=== PATIENT | male | born 1995 | race American Indian/Alaskan Native ===

== ENCOUNTER 2019-08-02 10:18 | Emergency (ER) | payer SELFPAY ==
[2019-08-02 10:31] VITALS: BP 135/89
--- NOTE | 2019-08-02 11:58 | Emergency Department Report ---
Chief Complaint: Upper Respiratory Infection Stated Complaint: COLD SX Time Seen by Provider: 08/02/19 11:53 - HPI History of Present Illness: 24-year-old male comes in for cough since Wednesday, runny nose, sneezing and nasal congestion. Patient reports dizziness 2 days of work and needs a work excuse. Patient personally been taking NyQuil and DayQuil. Last dose was last night. Patient denies any past medical history currently takes no medications on a daily basis and has no known drug allergies. - Exam Vital Signs: Vital Signs 08/02/19 10:29 Temperature 98.5 F Pulse Rate 89 Respiratory 16 Rate Blood Pressure 135/89 [Left] O2 Sat by Pulse 100 Oximetry Physical Exam: GENERAL APPEARANCE: Well developed, well nourished, in no acute distress. SKIN: Inspection of the skin reveals no rashes, ulcerations or petechiae. HEENT: The sclerae were anicteric and conjunctivae were pink and moist. Extraocular movements were intact and pupils were equal, round, and reactive to light with normal accommodation. External inspection of the ears and nose showed no scars, lesions, or masses. Lips, teeth, and gums showed normal mucosa. The oral mucosa, hard and soft palate, tongue and posterior pharynx were normal. NECK: Supple and symmetric. CHEST: Normal AP diameter and normal contour without any kyphoscoliosis. LUNGS: Auscultation of the lungs revealed normal breath sounds without any other adventitious sounds or rubs. CARDIOVASCULAR: There was a regular rate and rhythm without any murmurs, gallops, rubs. MUSCULOSKELETAL: Gait was normal. EXTREMITIES: No cyanosis, clubbing or edema. NEUROLOGIC: Alert and oriented x 3. Normal affect. Gait was normal. MSE screening note: Focused history and physical exam performed. Due to findings the following was ordered: Patient has allergic rhinitis. Patient can get [id number] Zyrtec D cough drops and to follow up with her primary care provider. ED Disposition for MSE Clinical Impression: Allergic rhinitis Disposition: Z- MED SCREENING EXAM-LEFT Is pt being admited?: No Does the pt Need Aspirin: No Condition: Stable Additional Instructions: Patient can take [id number] Zyrtec D and cough drops. Follow-up with the primary care provider if his symptoms persist or gets worse. Forms: Work/School Release Form(ED)
== END 2019-08-02 12:32 | disposition left against medical advice (07) ==
LOC: ED 10:18
DX: J30.9 Allergic rhinitis, unspecified (principal)
CPT/HCPCS: 99282

== ENCOUNTER 2019-12-05 08:53 | Emergency (ER) | payer SELFPAY ==
[2019-12-05 09:15] VITALS: BP 125/74
[2019-12-05] MEDS ORDERED: ALBUTEROL 2.5 MG/3 ML NEBU IH ONE (10:59)
[2019-12-05] MEDS ORDERED: predniSONE 20 MG TAB PO ONE (10:59)
[2019-12-05] MEDS ORDERED: IBUPROFEN 800 MG TAB PO ONE (10:59)
--- NOTE | 2019-12-05 11:00 | Emergency Department Report ---
Minor Respiratory - HPI Chief Complaint: Upper Respiratory Infection Stated Complaint: WEAKNESS Time Seen by Provider: 12/05/19 10:58 Duration: 3 Days Pain Location: Chest Severity: mild Minor Respiratory: Yes Rhinorrhea, Yes Able to Tolerate Fluids, Yes Cough, No Sore Throat, No Ear Pain, No Sick Contacts, No Hemoptysis, No Chest Pain, No Shortness of Breath, No Fever Other History: 24 YO AA MALE COMES TO ER WITH COUGH AND CONGESTION. NO FEVER OR CHILLS. NO MYALGIA. NOW FOR 3 DAYS. DID NOT TAKE OTC AND DID NOT SEE PCP. ED Review of Systems ROS: Stated complaint: WEAKNESS Other details as noted in HPI Comment: All other systems reviewed and negative ED Past Medical Hx - Past Medical History Previous Medical History?: No - Surgical History Past Surgical History?: No - Family History Family history: no significant - Social History Smoking Status: Current Every Day Smoker - Medications Home Medications: Home Medications Medication Instructions Recorded Confirmed Last Taken Type Albuterol INH(or & Nicu Only) 2 puff IH QID PRN #1 inhalation 12/05/19 Unknown Rx [ProAir HFA Inhaler] Azithromycin [Zithromax Z-KARMEN] 250 mg PO DAILY #6 tablet 12/05/19 Unknown Rx Cetirizine HCl [ZyrTEC] 10 mg PO DAILY #30 capsule 12/05/19 Unknown Rx Fluticasone [Flonase] 1 spray NS QDAY #1 bottle 12/05/19 Unknown Rx predniSONE [Deltasone] 20 mg PO DAILY #5 tablet 12/05/19 Unknown Rx Minor Respiratory Exam - Exam General: Vital signs noted. No distress. Alert and acting appropriately. HEENT: Yes Moist Mucous Membranes, No Pharyngeal Erythema, No Pharyngeal Exudates, No Rhinorrhea, No Conjuctival Injection, No Frontal Tenderness, No Maxillary Tenderness Ear: Neither TM Bulge, Neither TM Erythema, Neither EAC Pain, Neither EAC Discharge Neck: Yes Supple, No Adenopathy Lungs: Yes Good Air Exchange, Yes Wheezes, No Ronchi, No Stridor, No Cough, No Labored Respirations, No Retractions, No Use of Accessory Muscles, No Other Abnormal Lung Sounds Heart: Yes Regular, No Murmur Abdomen: Yes Normal Bowel Sounds, No Tenderness, No Peritoneal Signs Skin: No Rash, No Edema Neurologic: Alert and oriented, no deficits. Musculoskeletal: Unremarkable. ED Course Vital Signs 12/05/19 09:13 Temperature 98.3 F Pulse Rate 87 Respiratory 18 Rate Blood Pressure 125/74 O2 Sat by Pulse 100 Oximetry ED Medical Decision Making - Radiology Data Radiology results: report reviewed, image reviewed - Medical Decision Making XRAY NO PNA MEDICATED IN ER VSS AMBULATORY NON ILL NON TOXIC TAKING PO COUNSELED ON SMOKING DC HOME WITH DC POC AND PCP FOLLOW UP REFERRAL GIVEN Vital Signs 12/05/19 12/05/19 09:13 11:24 Temperature 98.3 F Pulse Rate 87 Pulse Rate [ 82 Anterior Bilateral Throughout] Respiratory 18 Rate Respiratory 17 Rate [Anterior Bilateral Throughout] Blood Pressure 125/74 O2 Sat by Pulse 100 Oximetry - Differential Diagnosis URTI Critical care attestation.: If time is entered above; I have spent that time in minutes in the direct care of this critically ill patient, excluding procedure time. ED Disposition Clinical Impression: Acute bronchitis, URTI (acute upper respiratory infection) Disposition: DC-01 TO HOME OR SELFCARE Is pt being admited?: No Does the pt Need Aspirin: No Condition: Stable Instructions: Acute Bronchitis (ED) Additional Instructions: STAY WELL HYDRATED MEDS ORDERED TODAY FOLLOW UP WITH PCP IN 48 HOURS FOR REEVALUATION REFERRAL BELOW DIET AND ACTIVITY TOLERATED AVOID SMOKING Prescriptions: predniSONE [Deltasone] 20 mg PO DAILY #5 tablet Fluticasone [Flonase] 1 spray NS QDAY #1 bottle Albuterol INH(or & Nicu Only) [ProAir HFA Inhaler] 2 puff IH QID PRN #1 inhalation PRN Reason: Shortness Of Breath Azithromycin [Zithromax Z-KARMEN] 250 mg PO DAILY #6 tablet Cetirizine HCl [ZyrTEC] 10 mg PO DAILY #30 capsule Referrals: PRIMARY MD JOSH [Primary Care Provider] - 3-5 Days LIZ WILL MD [Staff Physician] - 3-5 Days Time of Disposition: 11:32
--- NOTE | 2019-12-05 11:20 | XRay Report ---
CHEST 2 VIEWS INDICATION: cough. COMPARISON: 08/15/2019 FINDINGS: Support devices: None. Heart: Within normal limits. Lungs/pleura: No acute air space or interstitial disease. No pneumothorax. Additional findings: None. IMPRESSION: Normal chest x-ray Signer Name: Betito Mart Jr, MD Signed: 12/05/2019 11:15 AM Workstation Name: [id number]
== END 2019-12-05 11:58 | disposition home or self-care (01) ==
LOC: ED 08:53
DX: J20.9 Acute bronchitis, unspecified (principal); J06.9 Acute upper respiratory infection, unspecified; F17.200 Nicotine dependence, unspecified, uncomplicated; Z79.899 Other long term (current) drug therapy
CPT/HCPCS: 71046; 94640; 99283; J7512; 94644

== ENCOUNTER 2021-06-01 10:27 | Emergency (ER) | payer OTHER ==
[2021-06-01 11:05] VITALS: BP 142/89
--- NOTE | 2021-06-01 13:00 | Emergency Department Report ---
ED General Adult HPI - General Chief complaint: Head Injury Stated complaint: HIT IN HEAD @ WORK W/ METAL POLE Time Seen by Provider: 06/01/21 12:15 Source: patient Mode of arrival: Ambulatory Limitations: No Limitations - History of Present Illness Initial comments: Patient is a 25-year-old male presents emergency room with complaints of being hit in the head by something earlier this morning. Patient states he was cleaning out an [address] when a metal pole hit his head. He states he is mostly complaining of neck pain but also has a mild headache. He denies any loss of consciousness, vision changes, vomiting, numbness, weakness, bowel or bladder incontinence, any other symptoms. He denies any abrasion or laceration. No past medical history. No allergies to medications. - Related Data Previous Rx's Medication Instructions Recorded Last Taken Type Albuterol Mdi (or & Nicu Only) 2 puff IH QID PRN #1 inhalation 12/05/19 Unknown Rx [ProAir HFA Inhaler] Azithromycin [Zithromax Z-KARMEN] 250 mg PO DAILY #6 tablet 12/05/19 Unknown Rx Cetirizine HCl [ZyrTEC] 10 mg PO DAILY #30 capsule 12/05/19 Unknown Rx Fluticasone [Flonase] 1 spray NS QDAY #1 bottle 12/05/19 Unknown Rx predniSONE [Deltasone] 20 mg PO DAILY #5 tablet 12/05/19 Unknown Rx Acetaminophen [Tylenol] 650 mg PO Q8HR PRN #20 capsule 06/01/21 Unknown Rx Menthol/Camphor [[place] 1 applicatio TP BID #18 oint...g. 06/01/21 Unknown Rx Ointment] Allergies Allergy/AdvReac Type Severity Reaction Status Date / Time No Known Allergies Allergy Verified 06/01/21 11:01 ED Review of Systems ROS: Stated complaint: HIT IN HEAD @ WORK W/ METAL POLE Other details as noted in HPI Comment: All other systems reviewed and negative ED Past Medical Hx - Past Medical History Previous Medical History?: No - Surgical History Past Surgical History?: No - Social History Smoking Status: Current Every Day Smoker - Medications Home Medications: Home Medications Medication Instructions Recorded Confirmed Last Taken Type Albuterol Mdi (or & Nicu Only) 2 puff IH QID PRN #1 inhalation 12/05/19 Unknown Rx [ProAir HFA Inhaler] Azithromycin [Zithromax Z-KARMEN] 250 mg PO DAILY #6 tablet 12/05/19 Unknown Rx Cetirizine HCl [ZyrTEC] 10 mg PO DAILY #30 capsule 12/05/19 Unknown Rx Fluticasone [Flonase] 1 spray NS QDAY #1 bottle 12/05/19 Unknown Rx predniSONE [Deltasone] 20 mg PO DAILY #5 tablet 12/05/19 Unknown Rx Acetaminophen [Tylenol] 650 mg PO Q8HR PRN #20 capsule 06/01/21 Unknown Rx Menthol/Camphor [[place] 1 applicatio TP BID #18 oint...g. 06/01/21 Unknown Rx Ointment] ED Physical Exam - General Limitations: No Limitations General appearance: alert, in no apparent distress - Head Head exam: Present: atraumatic, normocephalic, other (no signs of hematoma, no signs of contusion, no abrasion or laceration to the scalp, no skull or facial bony ttp, no crepitus, no deformity) - Eye Eye exam: Present: normal appearance, PERRL, EOMI. Absent: periorbital swelling, periorbital tenderness - ENT ENT exam: Present: mucous membranes moist - Neck Neck exam: Present: normal inspection, tenderness (bilateral C-spine paraspinal muscular ttp, mild midline ttp, no step offs, no deformities, no edema, no ecchymosis, no crepitus ), full ROM. Absent: meningismus - Respiratory Respiratory exam: Present: normal lung sounds bilaterally. Absent: respiratory distress, wheezes, rales, rhonchi, stridor, chest wall tenderness, accessory muscle use, decreased breath sounds, prolonged expiratory - Cardiovascular Cardiovascular Exam: Present: regular rate, normal rhythm, normal heart sounds. Absent: systolic murmur, diastolic murmur, rubs, gallop - Back Exam Back exam: Present: normal inspection, full ROM. Absent: paraspinal tenderness, vertebral tenderness - Neurological Exam Neurological exam: Present: alert, oriented X3, CN II-XII intact, normal gait. Absent: motor sensory deficit - Psychiatric Psychiatric exam: Present: normal affect, normal mood - Skin Skin exam: Present: warm, dry, intact ED Course Vital Signs 06/01/21 11:04 Temperature 98.4 F Pulse Rate 69 Respiratory 20 Rate Blood Pressure 142/89 O2 Sat by Pulse 100 Oximetry ED Medical Decision Making - Radiology Data Radiology results: report reviewed Ordering Physician: SAHARA DAY Date of Service: 06/01/21 Procedure(s): XR spine cervical 2-3V Accession Number(s): [id number] cc: SAHARA DAY Fluoro Time In Minutes: Cervical spine-3 views INDICATION: neck pain after something fell and hit head. COMPARISON: None. IMPRESSION: Normal alignment. No significant discogenic DJD or facet arthropathy. No acute osseous or soft tissue abnormality. Signer Name: Bret Bhardwaj MD Signed: 06/01/2021 1:12 PM Workstation Name: [id number] Transcribed By: LINH Dictated By: Bret Bhardwaj MD Electronically Authenticated By: Bret Bhardwaj MD Signed Date/Time: 06/01/21 131 DD/ 10 TD/TT: Print - Medical Decision Making Patient is a 25-year-old male presents emergency room with complaints of being hit in the head by something earlier this morning. Patient states he was cleaning out an [address] when a metal pole hit his head. He states he is mostly complaining of neck pain but also has a mild headache. He denies any loss of consciousness, vision changes, vomiting, numbness, weakness, bowel or bladder incontinence, any other symptoms. He denies any abrasion or laceration. No past medical history. No allergies to medications. vss. on exam:no signs of hematoma, no signs of contusion, no abrasion or laceration to the scalp, no skull or facial bony ttp, no crepitus, no deformity, bilateral C-spine paraspinal muscular ttp, mild midline ttp, no step offs, no deformities, no edema, no ecchymosis, no crepitus, no focal neuro deficits. X-ray cervical spine: IMPRESSION: Normal alignment. No significant discogenic DJD or facet arthropathy. No acute osseous or soft tissue abnormality. Bailey CT head rule is 0, CT head imaging is not recommended. Discussed all results with patient answer questions. Patient given prescription for medications. Advised patient please use medication as prescribed as needed. May use ice pack, heating pad, rest, and salt bath. dp not use Warren balm while using heat or ice. Follow-up with your primary care doctor for reexamination. Return to emergency room for any new or worsening symptoms. Critical care attestation.: If time is entered above; I have spent that time in minutes in the direct care of this critically ill patient, excluding procedure time. ED Disposition Clinical Impression: Neck pain Minor head injury Qualifiers: Encounter type: initial encounter Qualified Code(s): S09.90XA - Unspecified injury of head, initial encounter Disposition: TO HOME OR SELFCARE Is pt being admited?: No Does the pt Need Aspirin: No Condition: Stable Additional Instructions: please use medication as prescribed as needed. May use ice pack, heating pad, rest, and salt bath. dp not use Warren balm while using heat or ice. Follow-up with your primary care doctor for reexamination. Return to emergency room for any new or worsening symptoms. Prescriptions: Menthol/Camphor [[place] Ointment] 1 applicatio TP BID #18 oint...g. Acetaminophen [Tylenol] 650 mg PO Q8HR PRN #20 capsule PRN Reason: pain Referrals: PRIMARY CARE, [Primary Care Provider] - 2-3 Days Time of Disposition: 13:22 Print Language: FILIPINO
--- NOTE | 2021-06-01 13:16 | XRay Report ---
Cervical spine-3 views INDICATION: neck pain after something fell and hit head. COMPARISON: None. IMPRESSION: Normal alignment. No significant discogenic DJD or facet arthropathy. No acute osseous or soft tissue abnormality. Signer Name: Bret Bhardwaj MD Signed: 06/01/2021 1:12 PM Workstation Name: [id number]
== END 2021-06-01 13:45 | disposition home or self-care (01) ==
LOC: ED 10:27
DX: S09.90XA Unspecified injury of head, initial encounter (principal); M54.2 Cervicalgia; F17.200 Nicotine dependence, unspecified, uncomplicated; Z79.899 Other long term (current) drug therapy; W22.8XXA Striking against or struck by other objects, initial encounter; Y93.89 Activity, other specified; Y92.89 Other specified places as the place of occurrence of the external cause; Y99.0 Civilian activity done for income or pay
CPT/HCPCS: 72040